=== PATIENT | male | born 2000 | race Two or more races ===

== ENCOUNTER 2023-09-29 14:01 | Emergency (ER) | payer OTHER ==
[~2023-09-29] VITALS: Ht 180.3 cm; Wt 95.5 kg
[2023-09-29 15:28] LABS: COVID AG,FIA SOURCE NASAL SWAB
[2023-09-29 15:41] LABS: RAPID GROUP A STREP NEGATIVE (NEGATIVE)
[2023-09-29 15:47] LABS: SARS-COV2 (COVID) ANTIGEN,FIA Negative (Negative)
[2023-09-29 15:48] LABS: INFLUENZA TYPE A NEGATIVE FOR TYPE A (NEGATIVE); INFLUENZA TYPE B NEGATIVE FOR TYPE B (NEGATIVE)
[2023-09-29 17:03] VITALS: BP 142/90; PULSE 60; RESP 16; TEMP 98.3
[2023-09-29] MEDS: CefTRIAXone SODIUM 1 GM/VIAL IM ONE (18:08)
[2023-09-29] MEDS: LIDOCAINE/PF 1% 2 ML VIAL IM ONE (18:08)
[2023-09-29] MEDS: AZITHROMYCIN 500 MG TABLET PO ONE (18:08)
[2023-09-29] MEDS ORDERED: VALA500T PO (18:20)
== END 2023-09-29 18:39 | disposition home or self-care (01) ==
LOC: EMS 14:04
DX: B00.2 Herpesviral gingivostomatitis and pharyngotonsillitis (principal); Z20.822 Contact with and (suspected) exposure to COVID-19
CPT/HCPCS: 99283; 87426; 87430; 87804; 96372; J0696; J3490; Q9967